=== PATIENT | female | born 1955 | race Caucasian/White ===

== ENCOUNTER 2016-06-11 09:37 | Emergency (ER) | payer OTHER ==
[~2016-06-11] VITALS: Ht 160 cm; Wt 52.6 kg
[~2016-06-11 09:37] MED LIST: HYDR-971 PO; ONDA4TAB10 SL
--- NOTE | 2016-06-11 10:00 | PHYS DOC ---
Past Medical History Past Medical History: Hypertension Past Surgical History: Cholecystectomy Additional Past Surgical Histo: C1-C2 laminectomy. Alcohol Use: Occasionally Drug Use: None Adult General Chief Complaint Chief Complaint: DIZZY/LIGHT HEADED HPI HPI Patient is a 60 year old female who presents with who complaints. She states she had a concussion back in December no symptoms resolved and then on present states she fell and hit the posterior aspect of her head and she felt some dizziness. She states that over the last week she is felt slightly weak and saw her primary care physician yesterday who ordered blood pressure was on the low side and to stop taking her losartan and then felt better yesterday. She states it's worse she woke up she felt very weak she felt dizzy with the room spinning jet troubles ambulate and need to hold onto the sides to help. She states that she has a mild headache now. She denies any neck pain, fevers, abdominal pain chest pain or dysuria. Review of Systems Review of Systems Constitutional: Denies fever or chills [] Eyes: Denies change in visual acuity, redness, or eye pain [] HENT: Denies nasal congestion or sore throat [] Respiratory: Denies cough or shortness of breath [] Cardiovascular: No additional information not addressed in HPI [] GI: Denies abdominal pain, nausea, vomiting, bloody stools or diarrhea [] : Denies dysuria or hematuria [] Musculoskeletal: Denies back pain or joint pain [] Integument: Denies rash or skin lesions [] Neurologic: As a for mild frontal headache and dizziness with walking Endocrine: Denies polyuria or polydipsia [] Current Medications Current Medications Current Medications Medications (Trade) Dose Ordered Sig/Vicky Start Time Stop Time Status Last Admin Dose Admin Acetaminophen (Tylenol) 1,000 mg 1X ONCE 06/11/16 12:00 06/11/16 12:01 DC 06/11/16 13:03 1,000 MG Gadobutrol (Gadavist) 5 mmol 1X ONCE 06/11/16 12:45 06/11/16 12:46 DC 06/11/16 12:51 5 MMOL Allergies Allergies Allergies Coded Allergies Type Severity Reaction Last Updated Verified No Known Drug Allergies 03/12/14 No Physical Exam Physical Exam Constitutional: Well developed, well nourished, no acute distress, non-toxic appearance. [] HENT: Normocephalic, atraumatic, bilateral external ears normal, oropharynx moist, no oral exudates, nose normal. [] Eyes: PERRLA, EOMI, conjunctiva normal, no discharge. [] Neck: Normal range of motion, no tenderness, supple, no stridor. [] Cardiovascular:Heart rate regular rhythm, no murmur [] Lungs & Thorax: Bilateral breath sounds clear to auscultation [] Abdomen: Bowel sounds normal, soft, no tenderness, no masses, no pulsatile masses. [] Skin: Warm, dry, no erythema, no rash. [] Back: No tenderness, no CVA tenderness. [] Extremities: No tenderness, no cyanosis, no clubbing, ROM intact, no edema. [] Neurologic: Alert and oriented X 3, normal motor function, normal sensory function, no focal deficits noted. Ambulated with steady gait, finger nose intact. [] Psychologic: Affect normal, judgement normal, mood normal. [] Current Patient Data Vital Signs Vital Signs Date Time Temp Pulse Resp B/P Pulse Ox O2 Delivery O2 Flow Rate FiO2 06/11/16 13:30 86 16 151/64 97 Room Air 06/11/16 10:36 97.8 97.8 Lab Values Laboratory Tests Test 06/11/16 10:55 06/11/16 11:10 06/11/16 11:37 Urine Collection Type Unknown Urine Color Yellow Urine Clarity Clear Urine pH 6.0 Urine Specific [place] <=1.005 Urine Protein Negativemg/dL (NEG-TRACE) Urine Glucose (UA) Negativemg/dL (NEG) Urine Ketones (Stick) Negativemg/dL (NEG) Urine Blood Negative (NEG) Urine Nitrite Negative (NEG) Urine Bilirubin Negative (NEG) Urine Urobilinogen Dipstick 0.2mg/dL (0.2 mg/dL) Urine Leukocyte Esterase Negative (NEG) Urine RBC 0/HPF (0-2) Urine WBC 0/HPF (0-4) Urine Squamous Epithelial Cells Few/LPF Urine Bacteria 0/HPF (0-FEW) White Blood Count 7.5x10^3/uL (4.0-11.0) Red Blood Count 4.40x10^6/uL (3.50-5.40) Hemoglobin 14.0g/dL (12.0-15.5) Hematocrit 41.7% (36.0-47.0) Mean Corpuscular Volume 95fL (79-100) Mean Corpuscular Hemoglobin 32pg (25-35) Mean Corpuscular Hemoglobin Concent 33g/dL (31-37) Red Cell Distribution Width 13.1% (11.5-14.5) Platelet Count 252x10^3/uL (140-400) Neutrophils (%) (Auto) 76% (31-73) H Lymphocytes (%) (Auto) 12% (24-48) L Monocytes (%) (Auto) 7% (0-9) Eosinophils (%) (Auto) 4% (0-3) H Basophils (%) (Auto) 1% (0-3) Neutrophils # (Auto) 5.7x10^3uL (1.8-7.7) Lymphocytes # (Auto) 0.9x10^3/uL (1.0-4.8) L Monocytes # (Auto) 0.5x10^3/uL (0.0-1.1) Eosinophils # (Auto) 0.3x10^3/uL (0.0-0.7) Basophils # (Auto) 0.1x10^3/uL (0.0-0.2) Prothrombin Time 13.0SEC (11.7-14.0) Prothrombin Time INR 1.0 (0.8-1.1) Sodium Level 140mmol/L (136-145) Potassium Level 4.2mmol/L (3.5-5.1) Chloride Level 102mmol/L (98-107) Carbon Dioxide Level 28mmol/L (21-32) Anion Gap 10 (6-14) Blood Urea Nitrogen 10mg/dL (7-20) Creatinine 0.8mg/dL (0.6-1.0) Estimated GFR (Cockcroft-Gault) 72.7 Glucose Level 83mg/dL (70-99) Calcium Level 9.6mg/dL (8.5-10.1) Magnesium Level 2.5mg/dL (1.8-2.4) H Total Bilirubin 0.6mg/dL (0.2-1.0) Direct Bilirubin 0.1mg/dL (0.0-0.2) Aspartate Amino Transferase (AST) 23U/L (15-37) Alanine Aminotransferase (ALT) 31U/L (14-59) Alkaline Phosphatase 97U/L (46-116) Creatine Kinase 84U/L (26-192) Creatine Kinase MB (Mass) 0.8ng/mL (0.0-3.6) Creatine Kinase MB Relative Index 1.0% (0-4) Troponin I Quantitative < 0.017ng/mL (0.000-0.055) IR-Dra-K-Type Natriuretic Peptide 43pg/mL (0-124) Total Protein 8.0g/dL (6.4-8.2) Albumin 4.0g/dL (3.4-5.0) Lipase 136U/L (73-393) Thyroid Stimulating Hormone (TSH) 3.833uIU/mL (0.358-3.74) H Influenza Type A Antigen Negative (NEGATIVE) Influenza Type B Antigen Negative (NEGATIVE) Laboratory Tests 06/11/16 11:10 Laboratory Tests 06/11/16 11:10 EKG EKG EKG shows normal sinus rhythm with rate of [address] elevations or T -wave inversions, normal axis, as interpreted by me. Radiology/Procedures Radiology/Procedures [facility] [address] [place] [address] IMAGING REPORT Signed PATIENT: URI LYLE ACCOUNT: [id number] : 1955 LOCATION: ER AGE: 60 SEX: F EXAM STATUS: REG ER ORD. PHYSICIAN: JANNET STEEN MD REASON: dizziness PROCEDURE: HEAD WO CONTRAST CT of the head without contrast, 06/11/2016: History: Dizziness, nose bleed Comparison is made to a study from 12/31/2015. The ventricles are within normal limits in size. There is no shift of the midline structures. There is no evidence of acute intracranial hemorrhage or mass effect. IMPRESSION: No acute intracranial abnormality is detected. PQRS Compliance Statement: One or more of the following individualized dose reduction techniques were utilized for this examination: 1. Automated exposure control 2. Adjustment of the mA and/or kV according to patient size 3. Use of iterative reconstruction technique DICTATED and SIGNED BY: ANA PAYNE MD DATE: 06/11/16 7386 CC: JANNET STEEN MD; RODRI CAICEDO MD ~ [address] [id number] IMAGING REPORT Signed PATIENT: URI LYLE ACCOUNT: [id number] : 1955 LOCATION: ER AGE: 60 SEX: F EXAM STATUS: PRE ER ORD. PHYSICIAN: JANNET STEEN MD REASON: dizziness PROCEDURE: PORTABLE CHEST 1V Portable chest, 06/11/2016: History: Dizziness The heart size and pulmonary vascularity are normal. No pulmonary infiltrates are seen. There is no evidence of pleural fluid. IMPRESSION: No acute cardiopulmonary abnormality is detected. DICTATED and SIGNED BY: ANA PAYNE MD DATE: 06/11/16 1019 CC: JANNET STEEN MD; RODRI CAICEDO MD ~ [address] [id number] IMAGING REPORT Signed PATIENT: URI LYLE ACCOUNT: [id number] : 1955 LOCATION: ER AGE: 60 SEX: F EXAM STATUS: REG ER ORD. PHYSICIAN: JANNET STEEN MD REASON: ataxia PROCEDURE: BRAIN WO/W CONTRAST PROCEDURE MRI brain without and with contrast. HISTORY Headaches and dizziness, bleeding from mouth and nose last night TECHNIQUE Multiplanar, multi sequential pre and post contrast MR imaging was performed of the brain. Contrast: 5 cc Gadavist COMPARISON None FINDINGS There is no restricted diffusion suggestive of recent infarct or cytotoxic edema. Ventricles, sulci, cisterns are within normal limits in size configuration. There is no intra-axial mass effect, midline shift, extra-axial fluid collection, or nodular parenchymal or leptomeningeal enhancement. There are multiple scattered small foci of T2 and FLAIR hyperintense signal abnormality of the supratentorial white matter in a bilateral distribution most numerous of the frontal lobes. There is preservation of the major arterial intracranial flow voids at the skull base. Cerebellar tonsils are normal in location. There is mild bilateral ethmoid air cell and right greater than left maxillary sinus mucosal thickening, also very minimally of the left frontal sinus. Mastoid air cells are aerated. There is preservation of the major arterial intracranial flow voids at the skull base, small left vertebral artery. There is patchy mild T2 and FLAIR hyperintense signal abnormality of the meño. IMPRESSION 1. There is is no evidence of recent infarct or abnormal intracranial enhancement. 2. There are some scattered foci of nonspecific, nonenhancing T2 and FLAIR hyperintense signal abnormality of the supratentorial white matter greatest of the frontal lobes, minimally of the meño. Pattern is not particularly suggestive of an inflammatory demyelinating disease although cannot be entirely excluded. Sequela of chronic microvascular ischemic disease would be a consideration especially if risk factors such as hypertension or diabetes. White matter changes can be seen in patients with migraine headaches if corresponding history. Electronically signed by: José Monroe MD (Jun 11, 2016 13:09:38) DICTATED and SIGNED BY: BAL MONROE MD DATE: 06/11/16 7305 CC: JANNET STEEN MD; RODRI CAICEDO MD ~ Impressions: Headache Dizziness Course & Med Decision Making Course & Med Decision Making Pertinent Labs and Imaging studies reviewed. (See chart for details) MRI shows some abnormalities that could be MS or other abnormalities. Patient is able to ambulate without difficulties. She is to follow-up with Dr. Westbrook with neurology. Return precautions given she is agreeable plan being discharge in stable condition. Dragon Disclaimer Dragon Disclaimer This electronic medical record was generated, in whole or in part, using a voice recognition dictation system. Departure Departure Impression: Primary Impression: Dizzy Disposition: 01 HOME, SELF-CARE Condition: STABLE Referrals: RODRI CAICEDO MD (PCP) ALUREN OLIVA MD Patient Instructions: Dizziness Additional Instructions: Your MRI has some abnormalities on it that you will need a follow-up with a neurologist. You take Tylenol and or Advil as directed for your headache. Please follow-up with Dr. Westbrook. Please call his office schedule appointment. Return the ER for increasing dizziness, inability to walk or other concerns. JANNET STEEN MD Jun 11, 2016 10:00
--- NOTE | 2016-06-11 10:23 | RAD ---
Portable chest, 06/11/2016: History: Dizziness The heart size and pulmonary vascularity are normal. No pulmonary infiltrates are seen. There is no evidence of pleural fluid. IMPRESSION: No acute cardiopulmonary abnormality is detected.
--- NOTE | 2016-06-11 11:05 | EKG ---
[facility] [address] [place] [address] Test Date: 2016-06-11 Test Time: 10:12:20 Pat Name: URI LYLE Department: Room: Gender: F [employer]: : 1955 Requested By: JANNET STEEN Order Number: [id number] Reading MD: Measurements Intervals [place] Rate: 88 P: 51 VT: 150 QRS: 24 QRSD: 80 T: 51 QT: 350 QTc: 427 Interpretive Statements SINUS RHYTHM NORMAL ECG RI6.01 Unconfirmed report No previous ECG available for comparison
[2016-06-11 11:16] LABS: BILIRUBIN,URINE NEGATIVE (NEG); GLUCOSE,URINE NEGATIVE (NEG); NITRITE,URINE NEGATIVE (NEG); PROTEIN,URINE NEGATIVE (NEG-TRACE); UROBILINOGEN,URINE 0.2 mg/dL (0.2 mg/dL)
[2016-06-11 11:22] LABS: BASO # 0.1 x10^3/uL (0.0-0.2); BASO % 1 % (0-3); EOS % 4 % (0-3); HEMATOCRIT 41.7 % (36.0-47.0); LYMPH # 0.9 x10^3/uL (1.0-4.8); LYMPH % 12 % (24-48); MEAN CORPUSCULAR HEMOGLOBIN 32 pg (25-35); MEAN CORPUSCULAR HGB CONC 33 g/dL (31-37); MEAN CORPUSCULAR VOLUME 95 fL (79-100); MONO % 7 % (0-9); NEUT % 76 % (31-73); PLATELET COUNT 252 x10^3/uL (140-400); RED CELL DISTRIBUTION WIDTH 13.1 % (11.5-14.5); WHITE BLOOD COUNT 7.5 x10^3/uL (4.0-11.0)
[2016-06-11 11:27] LABS: BACTERIA,URINE 0 /HPF (0-FEW); RBC,URINE 0 /HPF (0-2); SQUAMOUS EPITHELIAL CELL,UR FEW /LPF; WBC,URINE 0 /HPF (0-4)
[2016-06-11 11:35] LABS: CALCIUM 9.6 mg/dL (8.5-10.1); CREATININE 0.8 mg/dL (0.6-1.0); GFR 72.7; POTASSIUM 4.2 mmol/L (3.5-5.1)
--- NOTE | 2016-06-11 11:35 | RAD ---
CT of the head without contrast, 06/11/2016: History: Dizziness, nose bleed Comparison is made to a study from 12/31/2015. The ventricles are within normal limits in size. There is no shift of the midline structures. There is no evidence of acute intracranial hemorrhage or mass effect. IMPRESSION: No acute intracranial abnormality is detected. PQRS Compliance Statement: One or more of the following individualized dose reduction techniques were utilized for this examination: 1. Automated exposure control 2. Adjustment of the mA and/or kV according to patient size 3. Use of iterative reconstruction technique
[2016-06-11 11:40] LABS: DIRECT BILIRUBIN 0.1 mg/dL (0.0-0.2); MAGNESIUM 2.5 mg/dL (1.8-2.4); TOTAL BILIRUBIN 0.6 mg/dL (0.2-1.0)
[2016-06-11 11:48] LABS: CKMB MASS 0.8 ng/mL (0.0-3.6)
[2016-06-11] MEDS ORDERED: ACETAMINOPHEN 500 MG TABLET PO ONE (12:00)
[2016-06-11 12:41] LABS: OBC FLU VALID
[2016-06-11] MEDS ORDERED: GADOBUTROL 7.5 MMOL/7.5 ML VIAL IV ONE (12:45)
--- NOTE | 2016-06-11 13:10 | RAD ---
PROCEDURE MRI brain without and with contrast. HISTORY Headaches and dizziness, bleeding from mouth and nose last night TECHNIQUE Multiplanar, multi sequential pre and post contrast MR imaging was performed of the brain. Contrast: 5 cc Gadavist COMPARISON None FINDINGS There is no restricted diffusion suggestive of recent infarct or cytotoxic edema. Ventricles, sulci, cisterns are within normal limits in size configuration. There is no intra-axial mass effect, midline shift, extra-axial fluid collection, or nodular parenchymal or leptomeningeal enhancement. There are multiple scattered small foci of T2 and FLAIR hyperintense signal abnormality of the supratentorial white matter in a bilateral distribution most numerous of the frontal lobes. There is preservation of the major arterial intracranial flow voids at the skull base. Cerebellar tonsils are normal in location. There is mild bilateral ethmoid air cell and right greater than left maxillary sinus mucosal thickening, also very minimally of the left frontal sinus. Mastoid air cells are aerated. There is preservation of the major arterial intracranial flow voids at the skull base, small left vertebral artery. There is patchy mild T2 and FLAIR hyperintense signal abnormality of the meño. IMPRESSION 1. There is is no evidence of recent infarct or abnormal intracranial enhancement. 2. There are some scattered foci of nonspecific, nonenhancing T2 and FLAIR hyperintense signal abnormality of the supratentorial white matter greatest of the frontal lobes, minimally of the meño. Pattern is not particularly suggestive of an inflammatory demyelinating disease although cannot be entirely excluded. Sequela of chronic microvascular ischemic disease would be a consideration especially if risk factors such as hypertension or diabetes. White matter changes can be seen in patients with migraine headaches if corresponding history. Electronically signed by: José Monroe MD (Jun 11, 2016 13:09:38)
[2016-06-11 14:00] VITALS: BP 160/79
== END 2016-06-11 14:28 | disposition home or self-care (01) ==
LOC: ER 09:37
DX: R42 Dizziness and giddiness (principal); R51 Headache; I10 Essential (primary) hypertension; W01.198A Fall on same level from slipping, tripping and stumbling with subsequent striking against other object, initial encounter; Y93.89 Activity, other specified; Y92.89 Other specified places as the place of occurrence of the external cause; Y99.8 Other external cause status
CPT/HCPCS: 36415; 70450; 70553; 71010; 80048; 80076; 81001; 82553; 83690; 83735; 83880; 84443; 84484; 85027; 85610; 87804; 93005; 99285-25; A9585

== ENCOUNTER → 2017-01-29 | Outpatient (CLI) | payer OTHER ==
--- NOTE | 2017-01-29 13:22 | KCIC ---
DATE: 01/29/2017. EXAM: MAMMO NELA SCREENING BILATERAL. HISTORY: Routine mammographic screening. COMPARISON: 11/28/2015, 08/24/2014, 04/20/2013. This study was interpreted with the benefit of Computerized Aided Detection (CAD). FINDINGS: The breast parenchyma shows scattered fibroglandular densities. Breast parenchyma level B.. There are no suspicious masses, microcalcifications or architectural distortion. Nodule superolaterally bilaterally are stable and are consistent with benign intraparenchymal lymph nodes. Scattered calcifications are benign. BI-RADS CATEGORY: 2 BENIGN FINDING(S). RECOMMENDED FOLLOW-UP: 12M 12 MONTH FOLLOW-UP. PQRS compliance statement: Patient information was entered into a reminder system with a target due date 01/29/2018 for the next mammogram. Mammography is a sensitive method for finding small breast cancers, but it does not detect them all and is not a substitute for careful clinical examination. A negative mammogram does not negate a clinically suspicious finding and should not result in delay in biopsying a clinically suspicious abnormality. "Our facility is accredited by the [employer] Mammography Program."
== END | disposition home or self-care (01) ==
LOC: KCIC MAMMO 10:38
PROVIDERS: ATTEND Family Medicine
DX: Z12.31 Encounter for screening mammogram for malignant neoplasm of breast (principal)
CPT/HCPCS: 77063; G0202; 77067

== ENCOUNTER → 2017-11-23 | Outpatient (CLI) | payer OTHER ==
--- NOTE | 2017-11-23 16:56 | KCIC ---
HIP RIGHT 2 VIEW History: . Right hip pain for 1.5 years. Lifting injury. Fall. Comparison: None are available Small right pelvic calcification, compatible with a phlebolith. No acute fracture or bone destruction. Joints and soft tissues appear intact. Impression: No acute radiographic abnormality Electronically signed by: Blade Muniz MD (11/23/2017 4:52 PM) [id number]
== END | disposition home or self-care (01) ==
LOC: KCIC 14:38
PROVIDERS: ATTEND Family Medicine
DX: M25.551 Pain in right hip (principal)
CPT/HCPCS: 73502

== ENCOUNTER → 2018-11-25 | Outpatient (CLI) | payer MEDICARE ==
[~2018-11-25] MED LIST changes: +HYDR-3164 PO; -HYDR-971 PO
--- NOTE | 2018-11-25 12:28 | KCIC ---
Bone densitometry 11/25/2018 11:00 AM Indication: Postmenopausal screening exam Comparison Study: Available. Discussion: Bone Densitometry was performed with dual photon absorption of the lumbar spine and proximal left femur. Lumbar Spine: Bone average density is 0.941g/cm2 for L1-L4. T-Score is -1.0. Left proximal femur:: Bone average density is 0.772g/cm2. T-Score is -1.4. IMPRESSION: Osteopenia Note: Definitions established by the World Health Organization: Normal: T-score is -1.0 or above. Osteopenia: T-score is between -1.0 and -2.5. Osteoporosis: T-score is -2.5 or below. Electronically signed by: Merrick Villegas MD (11/25/2018 12:24 PM) [id number]
--- NOTE | 2018-11-25 13:58 | KCIC ---
Bilateral digital screening mammograms with 3-D tomosynthesis: Reason for examination: Routine screening. Comparison is made to previous studies dated 01/29/2017 and 11/28/2015. Bilateral mammograms in CC and oblique projections were obtained with 2-D imaging and 3-D tomosynthesis imaging on a Siemens Inspiration unit and reviewed on the workstation. Interpretation was made with the benefit of CAD. The skin and nipples show no abnormalities. No abnormal axillary lymph nodes are seen. The breast parenchyma shows scattered fatty and fibroglandular density. (Breast density: Category B.) There continue to be small nodules in the upper outer quadrants bilaterally probably representing lymph nodes which are stable. There are no new dominant masses, suspicious calcifications or architectural distortion. Impression: No evidence of malignancy. Recommend routine screening. BI-RAD Category 2: Benign. "Our facility is accredited by the [employer] Mammography Program." This patient's information has been entered into a reminder system for the patient to be notified with the results of her examination and a target date for the next mammogram. Electronically signed by: Bela Cartagena MD (11/25/2018 1:55 PM) [id number]
== END | disposition home or self-care (01) ==
LOC: KCIC DEXA 10:40
PROVIDERS: ATTEND Family Medicine
DX: Z12.31 Encounter for screening mammogram for malignant neoplasm of breast (principal); M85.88 Other specified disorders of bone density and structure, other site; N63.21 Unspecified lump in the left breast, upper outer quadrant; N63.11 Unspecified lump in the right breast, upper outer quadrant
CPT/HCPCS: 77063; 77067; 77080

== ENCOUNTER 2019-02-19 21:30 | Emergency (ER) | payer MEDICARE ==
[~2019-02-19] VITALS: Ht 160 cm; Wt 49.4 kg
[2019-02-19 22:05] LABS: BASO # 0.1 x10^3/uL (0.0-0.2); BASO % 1 % (0-3); EOS # 0.6 x10^3/uL (0.0-0.7); EOS % 5 % (0-3); HEMATOCRIT 36.3 % (36.0-47.0); HEMOGLOBIN 12.2 g/dL (12.0-15.5); LYMPH # 2.1 x10^3/uL (1.0-4.8); LYMPH % 19 % (24-48); MEAN CORPUSCULAR HEMOGLOBIN 32 pg (25-35); MEAN CORPUSCULAR HGB CONC 34 g/dL (31-37); MEAN CORPUSCULAR VOLUME 96 fL (79-100); MONO # 0.7 x10^3/uL (0.0-1.1); MONO % 6 % (0-9); NEUT # 7.5 x10^3/uL (1.8-7.7); NEUT % 68 % (31-73); PLATELET COUNT 291 x10^3/uL (140-400); RED BLOOD COUNT 3.78 x10^6/uL (3.50-5.40); RED CELL DISTRIBUTION WIDTH 12.4 % (11.5-14.5)
[2019-02-19 22:08] LABS: CALCIUM 9.3 mg/dL (8.5-10.1); GFR 55.6; POTASSIUM 3.6 mmol/L (3.5-5.1)
[2019-02-19 22:13] LABS: PROTHROMBIN TIME PATIENT 12.7 SEC (11.7-14.0)
[2019-02-19 22:14] LABS: ALBUMIN 3.7 g/dL (3.4-5.0); ALBUMIN/GLOBULIN RATIO 0.9 (1.0-1.7); TOTAL BILIRUBIN 0.2 mg/dL (0.2-1.0); TOTAL PROTEIN 7.7 g/dL (6.4-8.2)
[2019-02-19] MEDS ORDERED: ASPIRIN 325 MG TABLET PO ONE (22:15)
--- NOTE | 2019-02-19 22:24 | PHYS DOC ---
Past Medical History Past Medical History: Anxiety, Depression, High Cholesterol, Hypertension, UTI Past Surgical History: Appendectomy, Cholecystectomy Additional Past Surgical Histo: C1-C2 laminectomy. Alcohol Use: Heavy Drug Use: None Adult General Chief Complaint Chief Complaint: CHEST PAIN HPI HPI Patient is a 63 year old female accompanied by her , who presents to the emergency department with complaints of left-sided chest pain for the last 5-6 hours. She denies any radiation of the pain. She denies any shortness of breath, diaphoresis, nausea, vomiting, diarrhea, abdominal pain, back pain, vision changes, or wheezing. Patient states that on Thursday she had rearranged her be droom and when she got up during the night accidentally walked into her dresser and struck her left ribs and arm on the dresser causing her to fall. She states that the pain increases when she takes a deep breath. She went to her primary care doctor saw office yesterday and was diagnosed with urinary tract infection. She states she has been taking Cipro since yesterday for the UTI. She currently rates her pain 8 out of 10 on the pain scale there are no alleviating factors however the pain does increase with palpation and deep breaths. Review of Systems Review of Systems Constitutional: Denies fever or chills [] Eyes: Denies change in visual acuity, redness, or eye pain [] HENT: Denies nasal congestion or sore throat [] Respiratory: Denies cough or shortness of breath [] Cardiovascular: No additional information not addressed in HPI [] GI: Denies abdominal pain, nausea, vomiting, bloody stools or diarrhea [] : Denies dysuria or hematuria [] Musculoskeletal: Denies back pain or joint pain [] Integument: Denies rash or skin lesions [] Neurologic: Denies headache, focal weakness or sensory changes [] Endocrine: Denies polyuria or polydipsia [] All other systems were reviewed and found to be within normal limits, except as documented in this note. Current Medications Current Medications Current Medications Medications (Trade) Dose Ordered Sig/Vicky Start Time Stop Time Status Last Admin Dose Admin Aspirin (Carlos Aspirin) 325 mg 1X ONCE 02/19/19 22:15 02/19/19 22:16 DC 02/19/19 22:12 325 MG Ceftriaxone Sodium (Rocephin) 1 gm 1X ONCE 02/20/19 00:00 02/20/19 00:01 Dexamethasone Sodium Phosphate (Decadron) 10 mg 1X ONCE 02/20/19 00:00 02/20/19 00:01 Morphine Sulfate (Morphine Sulfate) 4 mg 1X ONCE 02/20/19 00:00 02/20/19 00:01 Allergies Allergies Allergies Coded Allergies Type Severity Reaction Last Updated Verified No Known Drug Allergies 03/12/14 No Physical Exam Physical Exam Constitutional: Well developed, well nourished, no acute distress, non-toxic appearance. [] HENT: Normocephalic, atraumatic, bilateral external ears normal, oropharynx moist, no oral exudates, nose normal. [] Eyes: PERRLA, EOMI, conjunctiva normal, no discharge. [] Neck: Normal range of motion, no stridor. [] Cardiovascular:Heart rate regular rhythm, no murmur [] Lungs & Thorax: Bilateral breath sounds clear to auscultation; left anterior chest TTP, Left lateral ribs non-tender without crepitus, Abdomen: soft, no tenderness, no masses, no pulsatile masses. [] Skin: Warm, dry, no erythema, no rash; Left lateral chest bruising noted, left upper arm bruising [] Back: No tenderness Extremities: No cyanosis, no clubbing, ROM intact, no edema. [] Neurologic: Alert and oriented X 3, no focal deficits noted. [] Psychologic: Affect normal, judgement normal, mood normal. [] Current Patient Data Vital Signs Vital Signs Date Time Temp Pulse Resp B/P (MAP) Pulse Ox O2 Delivery O2 Flow Rate FiO2 02/19/19 23:05 72 14 134/76 (95) 99 Room Air 02/19/19 21:35 98.1 98.1 Lab Values Laboratory Tests Test 02/19/19 21:40 02/19/19 23:18 White Blood Count 11.0 x10^3/uL (4.0-11.0) Red Blood Count 3.78 x10^6/uL (3.50-5.40) Hemoglobin 12.2 g/dL (12.0-15.5) Hematocrit 36.3 % (36.0-47.0) Mean Corpuscular Volume 96 fL (79-100) Mean Corpuscular Hemoglobin 32 pg (25-35) Mean Corpuscular Hemoglobin Concent 34 g/dL (31-37) Red Cell Distribution Width 12.4 % (11.5-14.5) Platelet Count 291 x10^3/uL (140-400) Neutrophils (%) (Auto) 68 % (31-73) Lymphocytes (%) (Auto) 19 % (24-48) L Monocytes (%) (Auto) 6 % (0-9) Eosinophils (%) (Auto) 5 % (0-3) H Basophils (%) (Auto) 1 % (0-3) Neutrophils # (Auto) 7.5 x10^3/uL (1.8-7.7) Lymphocytes # (Auto) 2.1 x10^3/uL (1.0-4.8) Monocytes # (Auto) 0.7 x10^3/uL (0.0-1.1) Eosinophils # (Auto) 0.6 x10^3/uL (0.0-0.7) Basophils # (Auto) 0.1 x10^3/uL (0.0-0.2) Prothrombin Time 12.7 SEC (11.7-14.0) Prothrombin Time INR 1.0 (0.8-1.1) Activated Partial Thromboplast Time 31 SEC (24-38) Sodium Level 139 mmol/L (136-145) Potassium Level 3.6 mmol/L (3.5-5.1) Chloride Level 99 mmol/L (98-107) Carbon Dioxide Level 30 mmol/L (21-32) Anion Gap 10 (6-14) Blood Urea Nitrogen 9 mg/dL (7-20) Creatinine 1.0 mg/dL (0.6-1.0) Estimated GFR (Cockcroft-Gault) 55.6 BUN/Creatinine Ratio 9 (6-20) Glucose Level 94 mg/dL (70-99) Calcium Level 9.3 mg/dL (8.5-10.1) Total Bilirubin 0.2 mg/dL (0.2-1.0) Aspartate Amino Transferase (AST) 24 U/L (15-37) Alanine Aminotransferase (ALT) 26 U/L (14-59) Alkaline Phosphatase 98 U/L (46-116) Creatine Kinase 111 U/L (26-192) Creatine Kinase MB (Mass) 1.4 ng/mL (0.0-3.6) Creatine Kinase MB Relative Index 1.3 % (0-4) Troponin I Quantitative < 0.017 ng/mL (0.000-0.055) Total Protein 7.7 g/dL (6.4-8.2) Albumin 3.7 g/dL (3.4-5.0) Albumin/Globulin Ratio 0.9 (1.0-1.7) L Lipase 179 U/L (73-393) Urine Collection Type Unknown Urine Color Yellow Urine Clarity Cloudy Urine pH 6.0 Urine Specific [place] <=1.005 Urine Protein Negative mg/dL (NEG-TRACE) Urine Glucose (UA) Negative mg/dL (NEG) Urine Ketones (Stick) Negative mg/dL (NEG) Urine Blood Small (NEG) Urine Nitrite Positive (NEG) Urine Bilirubin Negative (NEG) Urine Urobilinogen Dipstick 0.2 mg/dL (0.2 mg/dL) Urine Leukocyte Esterase Large (NEG) Urine RBC 3-5 /HPF (0-2) Urine WBC Tntc /HPF (0-4) Urine Squamous Epithelial Cells Few /LPF Urine Bacteria Many /HPF (0-FEW) Laboratory Tests 02/19/19 21:40 Laboratory Tests 02/19/19 21:40 EKG EKG 2139- SR rate 75, no STEMI read by Dr. Davidson. [] Radiology/Procedures Radiology/Procedures PROCEDURE: CHEST AP ONLY EXAM: PA and Lateral Views of the Chest DATE: 02/19/2019 9:36 PM INDICATION: Chest pain COMPARISON: No Prior FINDINGS: The heart is not enlarged. Mediastinal and hilar contours are normal. No focal parenchymal airspace opacity. No pleural effusion or pneumothorax. IMPRESSION: 1. No radiographic evidence for acute cardiopulmonary process.[] Course & Med Decision Making Course & Med Decision Making Pertinent Labs and Imaging studies reviewed. (See chart for details) dx: left chest wall pain, uti CBC unremarkable, PT/INR unremarkable; CMP unremarkable, Troponin <0.017; UA nitrite positive, large leukocytes, 3-5 RBC. Tntc WBC PT's CXR negative for any acute findings EKG normal Pt was given 1 gm rocephin IV, and 10 mg IV decadron for pain. Pt declined morphine. A 325 mg Aspirin was also administered. Low suspicion for ACS, most likely chest wall pain/contusion. PT advised to continue taking Cipro as prescribed by Dr. Fung's office for UTI. Follow up with Dr. Fung next week. Take tylenol or ibuprofen as needed for pain. Return to the ER if sx worsen. Patient verbalized an understanding of home care, medications, follow-up, and return to ED instructions and was in agreement with the plan of care. [] Dragon Disclaimer Dragon Disclaimer This electronic medical record was generated, in whole or in part, using a voice recognition dictation system. Departure Departure Impression: Primary Impression: Left-sided chest wall pain Additional Impressions: Contusion of chest wall with intact skin UTI (urinary tract infection) Disposition: HOME, SELF-CARE Condition: STABLE Referrals: RODRI FUNG MD (PCP) Patient Instructions: Chest Contusion, [id number], Chest Wall Pain, [id number], Urinary Tract Infection, [id number] Additional Instructions: Take tylenol or ibuprofen as needed for pain. Continue taking Cipro as prescribed by Dr. Fung's office. Follow up with Dr. Fung next week. Return to the ER if your symptoms worsen. Problem Qualifiers Additional Impressions: UTI (urinary tract infection) Urinary tract infection type: site unspecified Hematuria presence: with hematuria Qualified Codes: N39.0 - Urinary tract infection, site not specified; R31.9 - Hematuria, unspecified SEGUNDO COELHO [employer] Feb 19, 2019 22:24
--- NOTE | 2019-02-19 22:34 | RAD ---
EXAM: PA and Lateral Views of the Chest DATE: 02/19/2019 9:36 PM INDICATION: Chest pain COMPARISON: No Prior FINDINGS: The heart is not enlarged. Mediastinal and hilar contours are normal. No focal parenchymal airspace opacity. No pleural effusion or pneumothorax. IMPRESSION: 1. No radiographic evidence for acute cardiopulmonary process. Electronically signed by: Devon Tubbs MD (02/19/2019 10:31 PM) [id number]
[2019-02-19 23:26] LABS: BILIRUBIN,URINE NEGATIVE (NEG); CLARITY,URINE CLOUDY; COLOR,URINE YELLOW; NITRITE,URINE POSITIVE (NEG); PROTEIN,URINE NEGATIVE (NEG-TRACE); UROBILINOGEN,URINE 0.2 mg/dL (0.2 mg/dL)
[2019-02-19 23:31] LABS: BACTERIA,URINE MANY /HPF (0-FEW); SQUAMOUS EPITHELIAL CELL,UR FEW /LPF; WBC,URINE TNTC /HPF (0-4)
[2019-02-20] MEDS ORDERED: DEXAMETHASONE SOD PHOS 20 MG/5 ML VIAL. IV ONE
[2019-02-20] MEDS ORDERED: MORPHINE SULFATE 4 MG/ML VIAL. IV ONE
[2019-02-20] MEDS ORDERED: cefTRIAXone IV Push 1 GM VIAL. IVP ONE
[2019-02-20 00:27] VITALS: BP 127/72
--- NOTE | 2019-02-20 14:33 | EKG ---
[facility] [address] [place] [address] Test Date: 2019-02-19 Test Time: 21:39:38 Pat Name: URI LYLE Department: Room: Gender: F Clinical Laboratory Director: : [id number] Requested By: SEGUNDO COELHO Order Number: [id number] Reading MD: Measurements Intervals [place] Rate: 75 P: 69 IA: 170 QRS: 17 QRSD: 90 T: 48 QT: 402 QTc: 452 Interpretive Statements SINUS RHYTHM NORMAL ECG RI6.01 No previous ECG available for comparison
== END 2019-02-20 00:28 | disposition home or self-care (01) ==
LOC: ER 21:30
DX: S20.212A Contusion of left front wall of thorax, initial encounter (principal); N39.0 Urinary tract infection, site not specified; R31.9 Hematuria, unspecified; E78.00 Pure hypercholesterolemia, unspecified; I10 Essential (primary) hypertension; F41.9 Anxiety disorder, unspecified; F32.9 Major depressive disorder, single episode, unspecified; F10.20 Alcohol dependence, uncomplicated; Y90.9 Presence of alcohol in blood, level not specified; W22.03XA Walked into furniture, initial encounter; Y93.01 Activity, walking, marching and hiking; Y92.89 Other specified places as the place of occurrence of the external cause; Y99.8 Other external cause status
CPT/HCPCS: 36415; 71045; 80053; 81001; 82553; 83690; 84484; 85025; 85610; 85730; 93005; 96374; 96375; 99285; J0696; J1100

== ENCOUNTER → 2020-02-02 | Outpatient (CLI) | payer MEDICARE ==
--- NOTE | 2020-02-02 13:28 | KCIC ---
Bilateral digital screening mammograms with 3-D tomosynthesis: Reason for examination: Routine screening. Comparison is made to previous studies dated back to 11/28/2015. Bilateral mammograms in CC and oblique projections were obtained with 2-D imaging and 3-D tomosynthesis imaging on a Siemens Inspiration unit and reviewed on the workstation. Interpretation was made with the benefit of CAD. The skin and nipples show no abnormalities. No abnormal axillary lymph nodes are seen. The breast parenchyma shows scattered fatty and fibroglandular density. (Breast density: Category B.) There continues to be a small circumscribed nodule at the 10:00 B position of the right breast which is stable. There are no new dominant masses, suspicious calcifications or architectural distortion. Impression: No evidence of malignancy. Recommend routine screening. BI-RAD Category 2: Benign. "Our facility is accredited by the [employer] Mammography Program." This patient's information has been entered into a reminder system for the patient to be notified with the results of her examination and a target date for the next mammogram. Electronically signed by: Bela Cartagena MD (02/02/2020 1:25 PM) [email or web address]
== END ==
LOC: KCIC MAMMO 12:20
PROVIDERS: ATTEND Family Medicine
DX: Z12.31 Encounter for screening mammogram for malignant neoplasm of breast (principal); N64.89 Other specified disorders of breast
CPT/HCPCS: 77063; 77067

== ENCOUNTER → 2020-05-30 | Outpatient (CLI) | payer MEDICARE, OTHER ==
--- NOTE | 2020-05-30 14:29 | RAD ---
EXAM: Nuclear gastric emptying scan. HISTORY: Pain and nausea. COMPARISON: None. TECHNIQUE: Serial static images were obtained over the stomach following oral administration of 2.0 m Ci 99m-Tc sulfur colloid. FINDINGS: The stomach empties into the small bowel without evidence of reflux in the area of the esop hagus. Gastric retention percents: 1 hour 53% (normal range 34.8-91%) 2 hour 34% (normal range 2.7-60%) 3 hour 22% (normal range 0.5-28%) 4 hour 5% (normal range 0-10%) The estimated time for half emptying of gastric contents, i.e. 'gastric emptying time' is 76 minutes (normal is 66 +/- 22 minutes). IMPRESSION: Normal gastric emptying scan. Electronically signed by: Ivania Barton MD (05/30/2020 2:27 PM) [email or web address]
== END ==
LOC: NM 09:41
PROVIDERS: ATTEND Internal Medicine Gastroenterology
DX: R11.0 Nausea (principal); R10.9 Unspecified abdominal pain
CPT/HCPCS: 78264; A9541

== ENCOUNTER → 2020-10-29 | Outpatient (CLI) | payer MEDICARE ==
--- NOTE | 2020-10-30 07:59 | KCIC ---
3d digital tomography Bilateral History: Routine screening Technique: Bilateral 3d digital tomographic views were obtained with [employer] Natalya and reviewed on a Sapient workstation. In addition, CAD - computer aided detection was utilized. Comparison: Mammogram 02/02/2020. Findings: Breast Tissue Density B : The breast tissue is composed of mixed fatty and fibroglandular tissue. There are no suspicious masses, malignant appearing calcifications, or areas of architectural distort ion. There is a small oval circumscribed mass 10:00 position of the right breast at middle depth whic h has decreased in size and is likely a cyst. Impression: No suspicious findings. ASSESSMENT: BI-RADS Category 2: Benign findings. RECOMMENDATION: Routine screening mammograms. The patient will receive a letter with the results in the mail. The patient was entered into the mamm ography reminder system with a target recall date for her future mammogram and will receive a reminde r letter. Electronically signed by: Siobhan Gibbs MD (10/30/2020 7:56 AM) [email or web address]
== END ==
LOC: KCIC MAMMO 11:10
PROVIDERS: ATTEND Family Medicine
DX: Z12.31 Encounter for screening mammogram for malignant neoplasm of breast (principal)
CPT/HCPCS: 77063; 77067

== ENCOUNTER → 2020-12-10 | Outpatient (CLI) | payer MEDICARE ==
--- NOTE | 2020-12-10 15:09 | KCIC ---
EXAM: Barium esophagram. HISTORY: Reflux disease. Hoarseness. Gastritis. TECHNIQUE: Fluoroscopic imaging was performed in multiple positions and obliquities during the oral a dministration of barium contrast of thin and thick consistencies. Effervescent crystals were administ ered for dedicated air contrast views. Fluoroscopic images were obtained for total fluoroscopy time i s 79 seconds. COMPARISON: None. FINDINGS: There is no evidence of aspiration or penetration. The esophagus is normal in caliber. No e sophageal mucosal lesion is seen. There is no stricture. There is normal esophageal motility. There i s normal transit of contrast into the stomach. No hernia is seen. The gastric contour and mucosal are unremarkable. There is reflux of contrast to the proximal esophagus during recumbent positioning. IMPRESSION: 1. Moderate reflux of contrast to the proximal esophagus during recumbent positioning. 2. Otherwise, unremarkable barium esophagram. Electronically signed by: Ivania Barton MD (12/10/2020 3:06 PM) [email or web address]
== END ==
LOC: KCIC 12:44
PROVIDERS: ATTEND Surgery
DX: K21.9 Gastro-esophageal reflux disease without esophagitis (principal)
CPT/HCPCS: 74220

== ENCOUNTER 2021-02-06 06:08 | Observation (INO) | payer MEDICARE ==
[~2021-02-06] VITALS: Ht 160 cm; Wt 105.0 kg
[~2021-02-06 06:08] MED LIST changes: +ALPR1TAB6 PO; +ATOR20TA58 PO; +BUPR150T21 PO; +CITA20TA6 PO; +DEXAMETHASONE SOD PHOS 4 MG/ML VIAL ONE; +HYDROmorphone 2 MG/ML VIAL IVP PRN; +IV RINGERS,LACTATED 1000ML 1,000 ML IV SCH; +LIDOCAINE 2% PF 5 ML VIAL. ONE; +MIDAZOLAM HCL/PF 2 MG/2 ML VIAL. ONE; +MORPHINE SULFATE 2 MG/ML INJ. IVP PRN; +NEOSTIGMINE METHYLSULFATE 5 MG/5 ML SYRINGE. ONE; +OMEP20TA8 PO; +ONDANSETRON PF 4 MG/2 ML VIAL. ONE; +PROCHLORPERAZINE 10 MG/2 ML VIAL. IVP PRN; +PROPOFOL 10 MG/ML (20ML) VIAL. IV ONE; +ROCURONIUM 50 MG/5 ML VIAL. ONE; +SUCCINYLCHOLINE 200 MG/10 ML VIAL. ONE; +VERA240C2 PO; +ceFAZolin SODIUM IV Push 1 GM VIAL. IVP PRN; +fentaNYL PF VIAL 100 MCG/2 ML VIAL IVP PRN; +fentaNYL PF VIAL 100 MCG/2 ML VIAL ONE
[2021-02-06] MEDS ORDERED: KETAMINE HCL IN NACL, ISO-OSM 50 MG/5 ML SYRINGE ONE (06:29)
[2021-02-06 06:39] VITALS: BP 122/58
[2021-02-06] MEDS ORDERED: SCOPOLAMINE 1.5MG PATCH. TD ONE (07:00)
[2021-02-06] MEDS ORDERED: BUPIVACAINE-EPI 0.5% 30 ML VIAL KIT. ONE (07:05)
[2021-02-06] MEDS ORDERED: SURGICEL HEMOSTAT 4X8 EACH. ONE (07:06)
--- NOTE | 2021-02-06 07:40 | PDOC1 ---
History and Physical Date of Admission Date of Admission DATE: 02/06/21 TIME: 07:33 History of Present Illness History of Present Illness The patient is a 65 year old female who was referred for consideration for anti reflux surgery. She reports problems with burning in the throat for a few years which is typically worse with eating and drinking. She denies dysphagia or regurgitation. Her evaluation included an EGD on 05/14/20 which noted reflux esophagitis. pH testing was abnormal with a DeMeester score of 49.5. An esophagram showed normal peristalsis with no hiatal hernia. There was moderate reflux to the proximal esophagus while in the recumbent position. Her esophageal manometry was essentially normal. Past Medical History Past Medical History hypertension, GERD, depression/anxiety Past Surgical History Past Surgical History open justin, appendectomy, cervical diskectomy, tonsillectomy Social History Smoke: Quit ALCOHOL: rare Drugs: None Current Medications Current Medications Current Medications Fentanyl Citrate (Fentanyl 2ml Vial) 25 mcg PRN Q5MIN PRN IVP MILD PAIN 1-3; Start 02/06/21 at 06:00; Stop 02/07/21 at 05:59 Fentanyl Citrate (Fentanyl 2ml Vial) 50 mcg PRN Q5MIN PRN IVP MODERATE PAIN 4- 6; Start 02/06/21 at 06:00; Stop 02/07/21 at 05:59 Morphine Sulfate (Morphine Sulfate) 1 mg PRN Q10MIN PRN IVP SEVERE PAIN 7-10; Start 02/06/21 at 06:00; Stop 02/07/21 at 05:59 Ringer's Solution 1,000 ml @ 30 mls/hr Q24H IV Last administered on 02/06/21at 06:44; Start 02/06/21 at 06:00; Stop 02/06/21 at 17:59 Hydromorphone HCl (Dilaudid) 0.5 mg PRN Q10MIN PRN IVP SEVERE PAIN 7-10, 2nd CHOICE; Start 02/06/21 at 06:00; Stop 02/07/21 at 05:59 Prochlorperazine Edisylate (Compazine) 5 mg PACU PRN PRN IVP NAUSEA, MRX1; Start 02/06/21 at 06:00; Stop 02/07/21 at 05:59 Cefazolin Sodium (Ancef) 1 gm 1X PREOP PRN IVP PRIOR TO PROCEDURE; Start 02/06/21 at 06:00 Scopolamine (Transderm-Scop) 1 patch 1X ONCE TD Last administered on 02/06/21at 06:45; Start 02/06/21 at 07:00; Stop 02/06/21 at 07:01; Status DC Propofol (Diprivan) 200 mg STK-MED ONCE IV ; Start 02/06/21 at 04:52; Stop 02/06/21 at 06:53; Status DC Lidocaine HCl (Lidocaine Pf 2% Vial) 5 ml STK-MED ONCE .ROUTE ; Start 02/06/21 at 04:52; Stop 02/06/21 at 06:53; Status DC Ondansetron HCl (Zofran) 4 mg STK-MED ONCE .ROUTE ; Start 02/06/21 at 04:52; Stop 02/06/21 at 06:53; Status DC Dexamethasone Sodium Phosphate (Decadron) 4 mg STK-MED ONCE .ROUTE ; Start 02/06/21 at 04:52; Stop 02/06/21 at 06:53; Status DC Fentanyl Citrate (Fentanyl 2ml Vial) 100 mcg STK-MED ONCE .ROUTE ; Start 02/06/21 at 04:53; Stop 02/06/21 at 06:53; Status DC Rocuronium [place] (Zemuron) 50 mg STK-MED ONCE .ROUTE ; Start 02/06/21 at 04:53; Stop 02/06/21 at 06:53; Status DC Midazolam HCl (Versed) 2 mg STK-MED ONCE .ROUTE ; Start 02/06/21 at 04:53; Stop 02/06/21 at 06:54; Status DC Succinylcholine Chloride (Anectine) 200 mg STK-MED ONCE .ROUTE ; Start 02/06/21 at 05:01; Stop 02/06/21 at 07:01; Status DC Bupivacaine HCl/ Epinephrine Bitart (Sensorcain-Epi 0.5% Kit) 30 ml STK-MED ONCE .ROUTE ; Start 02/06/21 at 07:05; Stop 02/06/21 at 07:05; Status DC Cellulose (Surgicel Hemostat 4x8) 1 each STK-MED ONCE .ROUTE ; Start 02/06/21 at 07:06; Stop 02/06/21 at 07:06; Status DC Neostigmine [place] (Neostigmine Methylsulfate) 5 mg STK-MED ONCE .ROUTE ; Start 02/06/21 at 05:13; Stop 02/06/21 at 07:13; Status DC Active Scripts Active Reported Omeprazole 20 Mg Tablet.dr 20 Mg PO BID Alprazolam 1 Mg Tablet 1.5 Mg PO PRN Q6HRS PRN Bupropion Xl (Bupropion Hcl) 150 Mg Tab.er.24h 150 Mg PO DAILY Atorvastatin Calcium 20 Mg Tablet 20 Mg PO DAILY Verapamil Er (Verapamil Hcl) 240 Mg Cap24h.pel 120 Mg PO DAILY Citalopram Hbr (Citalopram Hydrobromide) 20 Mg Tablet 20 Mg PO DAILY Allergies Allergies: Coded Allergies: No Known Drug Allergies (Unverified , 02/06/21) ROS General: No: Chills, Night Sweats, Fatigue, Malaise, Appetite, Other PSYCHOLOGICAL ROS: No: Anxiety, Behavioral Disorder, Concentration difficultie, Decreased libido, Depression, Disorientation, Hallucinations, Hostility, Irritablity, Memory difficulties, Mood Swings, Obsessive thoughts, Physical abuse, Sexual abuse, Sleep disturbances, Suicidal ideation, Other HEENT: No: Heacaches, Visual Changes, Hearing change, Nasal congestion, Nasal discharge, Oral lesions, Sinus pain, Sore Throat, Epistaxis, Sneezing, Snoring, Tinnitus, Vertigo, Vocal changes, Other ALLERGY AND IMMUNOLOGY: No: Hives, Insect Bite Sensitivity, Itchy/Watery Eyes, Nasal Congestion, Post Nasal Drip, Seasonal Allergies, Other Hematological and Lymphatic: No: Bleeding Problems, Blood Clots, Blood Transfusions, Brusing, Night Sweats, Pallor, Swollen Lymph Nodes, Other ENDOCRINE: No: Breast Changes, Galactorrhea, Hair Pattern Changes, Hot Flashes, Malaise/lethargy, Mood Swings, Palpitations, Polydipsia/polyuria, Skin Changes, Temperature Intolerance, Unexpected Weight Changes, Other Cardiovascular: No Chest Pain, No Palpitations, No Orthopnea, No Paroxysmal Noc. Dyspnea, No Edema, No Lt Headedness, No Other Gastrointestinal: No Nausea, No Vomiting, No Abdominal Pain, No Diarrhea, No Constipation, No Melena, No Hematochezia, No Other Genitourinary: No Dysuria, No Frequency, No Incontinence, No Hematuria, No Retention, No Discharge, No Urgency, No Pain, No Flank Pain, No Other, No , No , No , No , No , No , No Musculoskeletal: No Gait Disturbance, No Joint Pain, No Joint Stiffness, No Joint Swelling, No Muscle Pain, No Muscular Weakness, No Pain In:, No Swelling In:, No Other Neurological: No Behavorial Changes, No Bowel/Bladder ControlChng, No Confusion, No Dizziness, No Gait Disturbance, No Headaches, No Impaired Coord/balance, No Memory Loss, No Numbness/Tingling, No Seizures, No Speech Problems, No Tremors, No Visual Changes, No Weakness, No Other Skin: No Dry Skin, No Eczema, No Hair Changes, No Lumps, No Mole Changes, No Mottling, No Nail Changes, No Pruritus, No Rash, No Skin Lesion Changes, No Other, No Acne Physical Exam General: Alert, Oriented X3, Cooperative HEENT: Atraumatic Lungs: Clear to auscultation Heart: RRR Abdomen: Soft (thin, R subcostal scar) Extremities: No clubbing, No cyanosis Skin: No rashes, No breakdown Neuro: Normal speech Psych/Mental Status: Mental status NL Vitals Vitals Vital Signs Date Time Temp Pulse Resp B/P (MAP) Pulse Ox O2 Delivery O2 Flow Rate FiO2 02/06/21 06:39 98.2 84 18 98 98.2 02/06/21 06:37 122/58 Room Air VTE Prophylaxis Ordered VTE Prophylaxis Devices: Yes VTE Pharmacological Prophylaxi: No Assessment/Plan Assessment/Plan 65 year old female with GERD. We discussed surgical treatment options particularly with a laparoscopic noemy fundoplication. The details and risks of surgery were discussed, including the potential that her symptoms could per sist. She understands and would like to proceed. Justifications for Admission Other Justification MARK ENCARNACION MD Feb 06, 2021 07:40
[2021-02-06] MEDS ORDERED: fentaNYL PF VIAL 100 MCG/2 ML VIAL ONE ×2 (08:07→11:17)
--- NOTE | 2021-02-06 10:21 | PDOC4 ---
Operative Note Operative Note Operative Note Preoperative Diagnosis: Gastroesophageal reflux disease Postoperative Diagnosis: Gastroesophageal reflux disease, small hiatal hernia Procedure: Laparoscopic Solitario fundoplication with repair of hiatal hernia Surgeon: Jules Smith.: Vinnie Lopes MS Anesthesia: Gen. Estimated Blood Loss: 20 mL Specimen: None Drains: None Complications: None Indications: The patient is a 65-year-old female who is referred due to gastroesophageal reflux disease. She was offered antireflux surgery with a laparoscopic Solitario fundoplication. The risks of surgery were discussed which include bleeding, infection, recurrent herniation, gastric or esophageal perforation, visceral injury, recurrent reflux, gas bloat syndrome, dysphasia, potential need for additional surgeries or procedures. She understands and would like to proceed. Description: The patient was taken to the operating room and placed supine on the operating table. General anesthesia was performed. The patient was then placed in lithotomy. The abdomen was prepped with ChloraPrep and draped in a standard surgical fashion. A small incision was made superior to and to the patient's left of the umbilicus through which a visualized 5 mm trocar was inserted. A pneumoperitoneum was then created and the laparoscope was introduced. In the right lateral abdomen a 12 mm trocar was inserted through which a soft fan retractor was used to elevate the left lobe of the liver. In the right upper quadrant a 5 mm trocar was inserted. In the left upper quadrant an 11 mm trocar was inserted while in the left lateral abdomen a 5 mm trocar was inserted. Attention was then directed to the diaphragmatic hiatus. There was a small hiatal hernia present. The pars flaccida was opened with a harmonic scalpel. The right marilyn was then identified and mobilized away from the esophagus. We began mobilizing some of the hernia sac well up into the mediastinum. We continued this dissection anteriorly freeing up the sac and its attachments in this location. The dissection then continued along the left marilyn and the sac and attachments were mobilized here as well. The gastrocolic omentum was then opened with the Harmonic scalpel in the upper portion of the greater curvature. We then freed up the upper part of the greater curvature and fundus using the harmonic scalpel. Large blood vessels were doubly clipped and divided. The dissection continued all the way back up to the left marilyn and any remaining splenic attachments were also mobilized. At this point the esophagus was readily visualized and we were able to free up the area around his gastroesophageal junction. A [place] drain was then placed around the esophagus at the GE junction and clips were applied holding the [place] in place. With retraction on the [place] we were able to continue freeing up any remaining sac attachments particularly in the posterior location. At this point the GE junction was well within the abdominal cavity. The left and right marilyn were then reapproximated with interrupted 2-0 silk sutures using the Endo Stitch device. Stitches were applied both anteriorly and posteriorly allowing for closure of the hernia defect. The fundus was then wrapped around in a 360 fashion creating the fundoplication. A shoeshine maneuver was used to ensure no twists or kinks. An initial 2-0 Ethibond suture was used securing the fundic lips together. Another suture was placed superior to this which incorporated a small bite of the anterior esophagus. An additional suture was then placed inferiorly completing the fundoplication. The fundus was then anchored to the right marilyn with a 2-0 silk suture. At this point hemostasis was good and the fundoplication was intact with a nice orientation. The 11 and 12 mm trochars were then removed and the fascia closed with 0 Vicryl sutures. The remaining ports were removed and the pneumoperitoneum was relieved. Skin at all incisions was closed with 4-0 Monocryl. Steri-Strips and dressings were applied. The patient tolerated the procedure well. MARK ENCARNACION MD Feb 06, 2021 10:21
[2021-02-06] MEDS ORDERED: 0.9 % SODIUM CHLORIDE 10 ML DISP.SYRIN. IV PRN (10:30)
[2021-02-06] MEDS ORDERED: ONDANSETRON PF 4 MG/2 ML VIAL. IVP PRN (10:30)
[2021-02-06] MEDS ORDERED: HYDROmorphone 2 MG/ML VIAL IV PRN (10:30)
[2021-02-06] MEDS: IV 1/2 NORMAL SALINE 1,000 ML IV SCH ×2 (10:30→19:24)
[2021-02-06] MEDS ORDERED: PROCHLORPERAZINE 10 MG/2 ML VIAL. IV PRN (10:30)
[2021-02-06] MEDS ORDERED: NALOXONE 0.4 MG/ML VIAL. IV PRN (10:30)
[2021-02-06] MEDS ORDERED: ALPRAZolam 1 MG TABLET PO PRN (10:30)
[2021-02-06] MEDS: IV NORMAL SALINE 1000ML BAG 1,000 ML IV SCH (10:30)
[2021-02-06] MEDS: fentaNYL PF VIAL 100 MCG/2 ML VIAL IVP PRN ×2 (11:21→11:51)
[2021-02-06 15:00] VITALS: BP_SYST 119; BP_SYST 126; BP_DIAS 57; BP_DIAS 58
[2021-02-06 19:36] VITALS: BP 113/56
[2021-02-06] MEDS ORDERED: ATORVASTATIN CALCIUM 20 MG TABLET PO SCH ×2 (21:00)
[2021-02-06 22:49] VITALS: BP 99/50
[2021-02-07 03:22] VITALS: BP 100/52
[2021-02-07 03:23] VITALS: BP 102/52
[2021-02-07 07:39] VITALS: BP 109/49
[2021-02-07] MEDS: IV 1/2 NORMAL SALINE 1,000 ML IV SCH (08:13)
[2021-02-07] MEDS ORDERED: HYDROcodon/APAP 7.5/325MG ORAL 15 ML SOLUTION PO PRN (09:00)
[2021-02-07] MEDS ORDERED: VERAPAMIL SR 120 MG TABLET.ER. PO SCH (09:00)
[2021-02-07] MEDS ORDERED: buPROPion XL 150 MG TAB.ER.24H. PO SCH (09:00)
[2021-02-07] MEDS ORDERED: CITALOPRAM 20 MG TABLET. PO SCH (09:00)
[2021-02-07] MEDS ORDERED: HYDR15SO9 PO (09:02)
--- NOTE | 2021-02-07 09:06 | DISCH ---
DISCHARGE INSTRUCTIONS Condition on Discharge Condition on Discharge: Stable Activity After Discharge Activity Instructions for Disc: Activity as tolerated Other activity instructions: ok to showr Lifting Instructions after Dis: No heavy lifting Driving Instructions after Dis: Do not drive today Diet after Discharge Diet after Discharge: Full Liquid (x 2 weeks ) Wound Incision Care Wound/Incision Care: May get incision wet, No wound care needed Contacting the after DC Call your doctor for: Concerns you may have Follow-Up Follow up with: Dr Vicente 2 weeks, call to schedule [phone] ARNULFO YADAV APRN Feb 07, 2021 09:06
--- NOTE | 2021-02-07 09:08 | PDOC ---
SURGICAL PROGRESS NOTE DATE: 02/07/21 TIME: 09:07 Subjective no reflux, sore throat last night wants to go home Vital Signs Vital Signs Date Time Temp Pulse Resp B/P (MAP) Pulse Ox O2 Delivery O2 Flow Rate FiO2 02/07/21 08:15 80 109/49 02/07/21 07:39 98.2 16 96 Room Air 98.2 02/06/21 11:22 6 I&O Intake and Output 02/07/21 07:00 Intake Total 650 ml Output Total 20 ml Balance 630 ml Intake Oral 550 ml IV Total 100 ml Output Estimated Blood Loss 20 ml # Voids 5 General: Alert, Oriented X3, Cooperative Abdomen: Soft, Other (dressings dry) Problem List clears, if doing well home after lunch Justicifation of Admission Dx: Justifications for Admission: Justification of Admission Dx: Yes Comments: GERD, ARNULFO GARCIA APRN Feb 07, 2021 09:08
[2021-02-07] MEDS: IV NORMAL SALINE 1000ML BAG 1,000 ML IV SCH (10:30)
[2021-02-07 11:01] VITALS: BP 103/49
[2021-02-07 15:15] VITALS: BP 135/73
--- NOTE | 2021-02-07 15:59 | NUR ---
Patient discharged home with spouse given discharge instructions. Patient has all personal belongings.
--- NOTE | 2021-02-19 12:19 | PDOC3 ---
Discharge Summary Visit Information Date of Admission: Feb 06, 2021 Date of Discharge: Feb 07, 2021 Admitting Diagnosis: Gastroesophageal reflux disease Final Diagnosis Gastroesophageal reflux disease, small hiatal hernia Brief Hospital Course Allergies Allergies Coded Allergies Type Severity Reaction Last Updated Verified No Known Drug Allergies 02/06/21 No Brief Hospital Course Ms. Bucio is a 65 old female who underwent Laparoscopic Solitario fundoplication with repair of hiatal hernia. Postoperatively tolerating diet, no reflux, sw allowing well and ready for discharge Discharge Information Condition at Discharge: Improved Follow Up: Weeks (2) Disposition/Orders: D/C to Home Scheduled Atorvastatin Calcium (Atorvastatin Calcium) 20 Mg Tablet, 20 MG PO DAILY for FOR CHOLESTEROL, #30 Ref 0 (Reported) Entered as Reported by: DINORA DE on 02/05/211321 Last Taken: Unknown Dose on 02/05/21 Last Action: Continued on 02/06/21 1026 by MARK ENCARNACION Bupropion Hcl (Bupropion Xl) 150 Mg Tab.er.24h, 150 MG PO DAILY for DEPRESSION/ANXIETY, (Reported) Entered as Reported by: DINORA DE on 02/05/211321 Last Taken: Unknown Dose on 02/05/21 Last Action: Continued on 02/06/21 1026 by MARK ENCARNACION Citalopram Hydrobromide (Citalopram Hbr) 20 Mg Tablet, 20 MG PO DAILY for DEPRESSION/ANXIETY, (Reported) Entered as Reported by: DINORA DE on 02/05/211321 Last Taken: Unknown Dose on 02/05/21 Last Action: Continued on 02/06/21 1026 by MARK ENCARNACION Verapamil Hcl (Verapamil Er) 240 Mg Cap24h.pel, 120 MG PO DAILY for HIGH BLOOD PRESSURE , (Reported) Entered as Reported by: DINORA DE on 02/05/211321 Last Taken: Unknown Dose on 02/06/21 0500 Last Action: Converted on 02/06/21 1026 by MARK ENCARNACION Scheduled PRN Alprazolam (Alprazolam) 1 Mg Tablet, 1.5 MG PO PRN Q6HRS PRN for ANXIETY / AGITATION, Ref 0 (Reported) Entered as Reported by: DINORA DE on 02/05/211321 Last Taken: Unknown Dose on 02/05/21 Last Action: Continued on 02/06/21 1026 by MARK ENCARNACION Hydrocodone/Acetaminophen (Hydrocodone-Acetamn 7.5-325/15) 15 Ml Solution, 15 ML PO PRN Q6HRS PRN for PAIN for 7 Days, #250 Ref 0 Prescribed by: Arnulfo Ramsay on 02/07/21 0903 Justicifation of Admission Dx: Justifications for Admission: Justification of Admission Dx: Yes ARNULFO RAMSAY DIRECTOR OF RADIO SERVICES Feb 19, 2021 12:19
== END 2021-02-07 15:58 | disposition home or self-care (01) ==
LOC: SURG 06:08 → 4 NORTH 10:21
PROVIDERS: ADMIT Surgery; ATTEND Surgery
DX: K44.9 Diaphragmatic hernia without obstruction or gangrene (principal); K21.9 Gastro-esophageal reflux disease without esophagitis; I10 Essential (primary) hypertension; F32.9 Major depressive disorder, single episode, unspecified; F41.9 Anxiety disorder, unspecified; Z90.49 Acquired absence of other specified parts of digestive tract; Z79.899 Other long term (current) drug therapy; Z98.890 Other specified postprocedural states; Z87.891 Personal history of nicotine dependence
CPT/HCPCS: 43280; A4213; A4215; A4314; A4364; A4930; A6219; G0378; G0379; J0330; J0690; J1100; J2250; J2405; J2704; J2710; J3010; J3490; A4452

== ENCOUNTER → 2021-05-21 | Outpatient (CLI) | payer MEDICARE ==
[~2021-05-21] MED LIST changes: -DEXAMETHASONE SOD PHOS 4 MG/ML VIAL ONE; +HYDR15SO9 PO; -HYDROmorphone 2 MG/ML VIAL IVP PRN; -IV RINGERS,LACTATED 1000ML 1,000 ML IV SCH; -LIDOCAINE 2% PF 5 ML VIAL. ONE; -MIDAZOLAM HCL/PF 2 MG/2 ML VIAL. ONE; -MORPHINE SULFATE 2 MG/ML INJ. IVP PRN; -NEOSTIGMINE METHYLSULFATE 5 MG/5 ML SYRINGE. ONE; -ONDANSETRON PF 4 MG/2 ML VIAL. ONE; -PROCHLORPERAZINE 10 MG/2 ML VIAL. IVP PRN; -PROPOFOL 10 MG/ML (20ML) VIAL. IV ONE; -ROCURONIUM 50 MG/5 ML VIAL. ONE; -SUCCINYLCHOLINE 200 MG/10 ML VIAL. ONE; -ceFAZolin SODIUM IV Push 1 GM VIAL. IVP PRN; -fentaNYL PF VIAL 100 MCG/2 ML VIAL IVP PRN; -fentaNYL PF VIAL 100 MCG/2 ML VIAL ONE
--- NOTE | 2021-05-21 11:30 | KCIC ---
EXAM: DUAL ENERGY X-RAY ABSORPTIOMETRY (DEXA). HISTORY: Postmenopausal screening. FINDINGS: The lowest measured T-score is -1.6 in the left hip, based on a bone mineral density of 0.7 51 g/cm^2. Refer to the worksheets for full detail. There has been a 2.8 percent decrease in density of the left hip and 0.0 percent change in density of the lumbar spine compared to a study performed 11/25/2018. IMPRESSION: 1. Low bone mass. Bone mineral density yields a T-score between -1.0 and -2.5. Fracture risk is incre ased. 2. FRAX report: Not calculated. METHODOLOGY: Dual energy x-ray absorptiometry was performed to measure bone mineral density. The foll owing analysis is based on the 2019 Official Positions of the International Society for Clinical Dens itometry: Measurements of the hips and the average of L1-L4 are preferred. When the spine and/or hip cannot be feasibly measured or interpreted, or in the setting of hyperparathyroidism, distal radial bone minera l density may be measured. The lumbar spine T-score is based on the average bone mineral density of L1-L4. In the setting of art ifact or anatomic abnormality, some lumbar levels may be excluded, and the remaining levels used for calculation. A single lumbar level is not used for diagnosis, and if only a single level is available for assessment, another anatomic site will be used to assign a diagnosis. The hip T-score is based on the bone mineral density measurement of the femoral neck or total proxima l femur of either side, whichever is lowest. Bilateral mean values are not used for diagnosis. The forearm T-score is derived from 33% of the distal radius of the nondominant forearm. Electronically signed by: Ivania Barton MD (05/21/2021 11:28 AM) [id number]
== END ==
LOC: KCIC DEXA 10:53
PROVIDERS: ATTEND Family Medicine
DX: M85.89 Other specified disorders of bone density and structure, multiple sites (principal); Z78.0 Asymptomatic menopausal state
CPT/HCPCS: 77080

== ENCOUNTER → 2021-06-19 | Outpatient (CLI) | payer MEDICARE ==
--- NOTE | 2021-06-19 10:17 | KCIC ---
LEFT FOOT AP LATERAL OBLIQUE Clinical Indication: Reason: Lt foot pain about 1 wk. Pain 1st digit. Comparison: None. Findings: There is no acute fracture or dislocation. 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 The re are degenerative changes of the sesamoids. Mineralization is normal. No bony erosion. There is no soft tissue abnormality. 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 Electronically signed by: Melvin Birmingham MD (06/19/2021 10:14 AM) [id number]
== END ==
LOC: KCIC 09:48
PROVIDERS: ATTEND Physician Assistant
DX: M19.072 Primary osteoarthritis, left ankle and foot (principal); M77.42 Metatarsalgia, left foot
CPT/HCPCS: 73630